=== PATIENT | male | born 1990 | race African-American/Black ===

== ENCOUNTER 2016-11-03 07:50 | Emergency (ER) | payer SELFPAY ==
[~2016-11-03] VITALS: Ht 167.6 cm; Wt 65.0 kg
[~2016-11-03 07:50] MED LIST: HYDR-3533 PO
[2016-11-03 07:51] VITALS: BP 146/83; PULSE 114; RESP 16; TEMP 98; O2SAT 96
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
[2016-11-03 08:39] VITALS: BP 126/79; PULSE 99; RESP 20; O2SAT 95
[2016-11-03] MEDS ORDERED: ACETAMINOPHEN/HYDROcodone 325 MG/5 MG TAB PO ONE (08:45)
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
[2016-11-03] MEDS ORDERED: AMOX875T PO (09:07)
[2016-11-03] MEDS ORDERED: AMOXICILLIN 875 MG TAB PO ONE (09:15)
== END 2016-11-03 09:50 | disposition home or self-care (01) ==
LOC: NEPB 07:50
DX: M27.2 Inflammatory conditions of jaws (principal)
CPT/HCPCS: 70486

== ENCOUNTER 2017-04-24 15:44 | Inpatient (IN) | payer SELFPAY ==
[~2017-04-24] VITALS: Ht 165.1 cm; Wt 66.6 kg
[~2017-04-24 15:44] MED LIST changes: +AMOX875T PO; -HYDR-3533 PO; +LACTATED RINGER'S 1000 ML INJ 2,000 ML IV ONE; +ONDANSETRON HCL 4 MG/2 ML VIAL IV PUSH ONE; +PROPOFOL 200 MG/20 ML AMP IV ONE
[2017-04-24 16:00] VITALS: BP 151/73; PULSE 111; RESP 22; TEMP 98; O2SAT 99
[2017-04-24] MEDS ORDERED: SODIUM CHLORIDE 0.9% FLUSH 10 ML FLUSH IVF PRN (16:00)
[2017-04-24] MEDS ORDERED: LEVOFLOXACIN 500 MG PREMIX INJ 100 ML IV ONE (16:15)
[2017-04-24] MEDS ORDERED: metroNIDAZOLE 500 MG INJ 100 ML IV ONE (16:15)
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
[2017-04-24 16:24] LABS: AUTOMATED NEUTROPHIL # 3.6 TH/MM3 (1.8-7.7); BASOPHIL # 0.1 TH/MM3 (0-0.2); BASOPHIL % 0.7 % (0.0-2.0); EOSINOPHIL % 0.4 % (0.0-4.0); HEMATOCRIT 38.8 % (39.0-51.0); HEMO FLAGS DIFF FINAL; LYMPH % 43.8 % (9.0-44.0); LYMPHOCYTE # 3.5 TH/MM3 (1.0-4.8); MEAN CELL VOLUME 94.6 FL (80.0-100.0); MEAN CORPUSCULAR HEMOGLOBIN 32.1 PG (27.0-34.0); MEAN CORPUSCULAR HGB CONC 33.9 % (32.0-36.0); NEUT % 45.1 % (16.0-70.0); PLATELET COUNT 237 TH/MM3 (150-450); RED CELL DISTRIBUTION WIDTH 13.9 % (11.6-17.2)
[2017-04-24 16:29] LABS: I-STAT POTASSIUM 3.4 MMOL/L (3.5-4.9); I-STAT SODIUM 143 MMOL/L (138-146)
[2017-04-24 16:31] LABS: APTT (PATIENT) 21.5 SEC (24.3-30.1); PROTHROMBIN TIME - PATIENT 11.3 SEC (9.8-11.6)
[2017-04-24] MEDS ORDERED: IOHEXOL 350 MG/ML 10 ML VIAL (for RAD DIAG) IV ONE (16:44)
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
[2017-04-24 16:57] VITALS: BP 124/84; PULSE 82; RESP 16; O2SAT 98
[2017-04-24] MEDS ORDERED: TETANUS/DIPHTHERIA TOXOID ADULT 0.5 ML VIAL IM ONE (17:00)
[2017-04-24] MEDS ORDERED: cefTRIAXone INJ 1,000 MG in SODIUM CHLORIDE 0.9% INJ 100 ML IV ONE (17:00)
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
[2017-04-24 17:28] LABS: ALT (GPT) 29 U/L (12-78); ANION GAP 19 MEQ/L (5-15); AST (GOT) 31 U/L (15-37); BICARBONATE 18.2 MEQ/L (21.0-32.0); BLOOD UREA NITROGEN 12 MG/DL (7-18); CHLORIDE 106 MEQ/L (98-107); GLOMERULAR FILTRATION RATE 53 ML/MIN (>89); POTASSIUM 3.4 MEQ/L (3.5-5.1); SODIUM (NA) 143 MEQ/L (136-145)
[2017-04-24 17:30] LABS: ALKALINE PHOSPHATASE 78 U/L (45-117); TOTAL BILIRUBIN ADULT 0.5 MG/DL (0.2-1.0)
[2017-04-24] MEDS ORDERED: LIDOCAINE HCL 1% 20 ML VIAL INFIL ONE (18:15)
[2017-04-24] MEDS ORDERED: LIDOCAINE HCL 1% 50 ML VIAL INFIL ONE (18:15)
[2017-04-24 18:51] VITALS: BP 110/75; PULSE 60; RESP 14; O2SAT 99
[2017-04-24 19:17] VITALS: TEMP 98.2
[2017-04-24] MEDS ORDERED: fentaNYL CITRATE 250 MCG/5 ML AMP ONE (19:33)
[2017-04-24] MEDS ORDERED: SUGAMMADEX SODIUM 200 MG/2 ML VIAL IV PUSH ONE ×2 (19:34)
[2017-04-24] MEDS ORDERED: HYDROmorphone HCL PF 2 MG/ML VIAL ONE (19:34)
[2017-04-24] MEDS ORDERED: BUPIVACAINE/EPINEPHRINE 0.5% PF 30 ML VIAL INFIL ONE (20:06)
[2017-04-24] MEDS ORDERED: MAGNESIUM HYDROXIDE SUSP 30 ML CUP PO PRN (21:00)
[2017-04-24] MEDS ORDERED: DO NOT ADM ANY ANTICOAGULANT DRUGS PRN (21:00)
[2017-04-24] MEDS ORDERED: PANTOPRAZOLE SODIUM 40 MG VIAL IVP SCH (21:00)
[2017-04-24] MEDS ORDERED: ENALAPRILAT 1.25 MG/ML VIAL IV PRN (21:00)
[2017-04-24] MEDS ORDERED: ACETAMINOPHEN/HYDROcodone 325 MG/5 MG TAB PO PRN ×2 (21:00)
[2017-04-24] MEDS ORDERED: SODIUM CHLORIDE 0.9% FLUSH 10 ML FLUSH IV FLUSH PRN (21:00)
[2017-04-24] MEDS ORDERED: MORPHINE SULFATE 4 MG/ML INJ IV PRN (21:00)
[2017-04-24] MEDS ORDERED: ceFAZolin 2 GM PREMIX 50 ML IV SCH (21:00)
[2017-04-24] MEDS ORDERED: ONDANSETRON HCL 4 MG/2 ML VIAL IV PRN (21:00)
[2017-04-24] MEDS: SODIUM CHLOR 0.9% 1000 ML INJ 1,000 ML IV SCH (21:00)
[2017-04-24] MEDS ORDERED: MEPERIDINE HCL 25 MG/ML VIAL ONE (21:11)
[2017-04-24 22:00] VITALS: BP 129/77; PULSE 68; RESP 20; TEMP 98.2; O2SAT 92
[2017-04-25 04:00] VITALS: BP 127/72; PULSE 63; RESP 20; TEMP 98.7; O2SAT 96
[2017-04-25] MEDS: ceFAZolin 2 GM PREMIX 50 ML IV SCH ×2 (04:08→10:55)
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
[2017-04-25] MEDS: SODIUM CHLOR 0.9% 1000 ML INJ 1,000 ML IV SCH (06:46)
[2017-04-25 07:58] VITALS: BP 113/63; PULSE 53; RESP 20; TEMP 97.7; O2SAT 96
[2017-04-25 08:15] VITALS: O2SAT 98
[2017-04-25] MEDS ORDERED: CEPH-460 PO (10:37)
[2017-04-25] MEDS ORDERED: HYDR-3516 PO (10:37)
[2017-04-25] MEDS ORDERED: MAGN400S PO (11:33)
[2017-04-25 11:37] VITALS: BP 127/85; PULSE 68; RESP 19; TEMP 98.7; O2SAT 98
[2017-04-25 12:06] LABS: AUTOMATED NEUTROPHIL # 14.1 TH/MM3 (1.8-7.7); BASOPHIL % 0.2 % (0.0-2.0); EOSINOPHIL % 0.2 % (0.0-4.0); HEMATOCRIT 38.7 % (39.0-51.0); HEMO FLAGS DIFF FINAL; LYMPH % 11.2 % (9.0-44.0); LYMPHOCYTE # 1.9 TH/MM3 (1.0-4.8); MEAN CELL VOLUME 93.1 FL (80.0-100.0); MEAN CORPUSCULAR HEMOGLOBIN 31.5 PG (27.0-34.0); MEAN CORPUSCULAR HGB CONC 33.9 % (32.0-36.0); MONO % 7.8 % (0.0-8.0); NEUT % 80.6 % (16.0-70.0); PLATELET COUNT 235 TH/MM3 (150-450); RED BLOOD COUNT 4.15 MIL/MM3 (4.50-5.90); RED CELL DISTRIBUTION WIDTH 13.8 % (11.6-17.2); WHITE BLOOD COUNT 17.4 TH/MM3 (4.0-11.0)
[2017-04-25 13:12] LABS: ALKALINE PHOSPHATASE 75 U/L (45-117); ALT (GPT) 33 U/L (12-78); ANION GAP 6 MEQ/L (5-15); AST (GOT) 42 U/L (15-37); BICARBONATE 28.6 MEQ/L (21.0-32.0); BLOOD UREA NITROGEN 12 MG/DL (7-18); CHLORIDE 103 MEQ/L (98-107); GLOMERULAR FILTRATION RATE 86 ML/MIN (>89); POTASSIUM 4.2 MEQ/L (3.5-5.1); SODIUM (NA) 138 MEQ/L (136-145); TOTAL BILIRUBIN ADULT 0.5 MG/DL (0.2-1.0)
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
== END 2017-04-25 14:01 | disposition home or self-care (01) | DRG 420 ==
LOC: NEPC 15:44 → NEDA 18:42 → HPAC 19:17 → N07B 22:03
PROVIDERS: ADMIT Surgery; ATTEND Surgery
PROC: 0JQ80ZZ Repair Abdomen Subcutaneous Tissue and Fascia, Open Approach (ICD-10-PCS; 2017-04-24)
PROC: 0HQBXZZ Repair Right Upper Arm Skin, External Approach (ICD-10-PCS; 2017-04-24)
PROC: 0HQ6XZZ Repair Back Skin, External Approach (ICD-10-PCS; 2017-04-24)
PROC: 0WJG4ZZ Inspection of Peritoneal Cavity, Percutaneous Endoscopic Approach (ICD-10-PCS; principal; 2017-04-24 19:41)
DX: S36.113A Laceration of liver, unspecified degree, initial encounter (principal); S31.610A Laceration without foreign body of abdominal wall, right upper quadrant with penetration into peritoneal cavity, initial encounter; F17.210 Nicotine dependence, cigarettes, uncomplicated; S41.011A Laceration without foreign body of right shoulder, initial encounter; X99.1XXA Assault by knife, initial encounter; S41.012A Laceration without foreign body of left shoulder, initial encounter; S41.111A Laceration without foreign body of right upper arm, initial encounter
CPT/HCPCS: 12004; 71260; 74177; 80053; 80307; 82435; 82565; 82947; 84132; 84295; 84520; 85025; 85610; 85730; 86850; 86900; 86901; 94150; J0690; J1170; J2175; J2405; J3010; J7030; J7120; Q9967